=== PATIENT | male | born 2000 | race Caucasian/White ===

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

== ENCOUNTER 2019-01-31 11:02 | Emergency (ER) | payer OTHER ==
[~2019-01-31] VITALS: Ht 177.8 cm; Wt 98.3 kg
[2019-01-31] MEDS ORDERED: ABIL1INJ2 (11:07)
[2019-01-31] MEDS ORDERED: RABIES IMMUNE GLOBULIN 1500 INTERNATIONAL UNIT/5ML VIAL (90375) IM ONE ×2 (12:15)
[2019-01-31] MEDS ORDERED: RABIES IMMUNE GLOBULIN 300 INTERNATIONAL UNITS/1ML VIAL (90375) IM ONE (12:15)
[2019-01-31] MEDS ORDERED: RABIES VACCINE HUMAN 2.5 INTERNATIONAL UNITS/ML VIAL (90675) IM ONE (12:15)
[2019-01-31 13:27] VITALS: BP 116/69
== END 2019-01-31 13:34 | disposition home or self-care (01) ==
LOC: M ED 11:02
DX: Z20.3 Contact with and (suspected) exposure to rabies (principal); Z23 Encounter for immunization; Z88.0 Allergy status to penicillin; Z79.899 Other long term (current) drug therapy

== ENCOUNTER 2019-02-04 10:15 | Emergency (ER) | payer OTHER ==
[~2019-02-04] VITALS: Ht 185.4 cm; Wt 96.7 kg
[~2019-02-04 10:15] MED LIST changes: +ABIL1INJ2
[2019-02-04 10:16] VITALS: BP 132/68
[2019-02-04] MEDS ORDERED: VITA-112 (10:23)
[2019-02-04] MEDS ORDERED: VITA500045 (10:23)
[2019-02-04] MEDS ORDERED: RABIES VACCINE HUMAN 2.5 INTERNATIONAL UNITS/ML VIAL (90675) IM ONE (11:15)
== END 2019-02-04 11:45 | disposition home or self-care (01) ==
LOC: M ED 10:15
DX: Z20.3 Contact with and (suspected) exposure to rabies (principal); Z23 Encounter for immunization; Z79.899 Other long term (current) drug therapy; Z88.0 Allergy status to penicillin

== ENCOUNTER 2019-02-07 18:39 | Emergency (ER) | payer OTHER ==
[~2019-02-07] VITALS: Ht 182.9 cm; Wt 96.0 kg
[~2019-02-07 18:39] MED LIST changes: +VITA-112; +VITA500045
[2019-02-07] MEDS ORDERED: RABIES VACCINE HUMAN 2.5 INTERNATIONAL UNITS/ML VIAL (90675) IM ONE (20:15)
[2019-02-07 20:19] VITALS: BP 121/63
== END 2019-02-07 20:19 | disposition home or self-care (01) ==
LOC: M ED 18:39
DX: Z20.3 Contact with and (suspected) exposure to rabies (principal); Z23 Encounter for immunization; F84.0 Autistic disorder; Z79.899 Other long term (current) drug therapy; Z88.0 Allergy status to penicillin

== ENCOUNTER 2019-10-16 23:09 | Inpatient (IN) | payer MEDICAID, OTHER, SELFPAY ==
[~2019-10-16] VITALS: Ht 180.3 cm; Wt 109.2 kg
[2019-10-16 23:38] LABS: HEMATOCRIT 45.6 % (42.0-52.0); HEMOGLOBIN 15.4 g/dl (13.5-17.5); MEAN CORPUSCULAR HEMOGLOBIN 30.7 pg (27.0-33.0); MEAN CORPUSCULAR HGB CONC 33.8 g/dl (32.0-36.5); MEAN CORPUSCULAR VOLUME 90.8 fl (80.0-96.0); PLATELET COUNT, AUTOMATED 255 10^3/uL (150-450); RED BLOOD COUNT 5.02 10^6/uL (4.30-6.10); WHITE BLOOD COUNT 12.4 10^3/uL (4.0-10.0)
[2019-10-17] LABS: AMPHETAMINES LEVEL URINE NEGATIVE (NEGATIVE); BARBITURATES URINE NEGATIVE (NEGATIVE); BENZODIAZEPINES URINE NEGATIVE (NEGATIVE); CANNABINOIDS URINE NEGATIVE (NEGATIVE); COCAINE METABOLITE URINE NEGATIVE (NEGATIVE); METHADONE URINE NEGATIVE (NEGATIVE); OPIATES URINE NEGATIVE (NEGATIVE); PHENCYCLIDINE URINE NEGATIVE (NEGATIVE)
[2019-10-17 00:09] LABS: ACETAMINOPHEN LEVEL < 2.0 UG/ML (10.0-30.0); ALBUMIN 3.9 GM/DL (3.2-5.2); ALT/SGPT 90 U/L (12-78); BILIRUBIN,DIRECT < 0.1 MG/DL (0.0-0.2); BILIRUBIN,TOTAL 0.3 MG/DL (0.2-1.0); BLOOD UREA NITROGEN 12 MG/DL (7-18); CALCIUM LEVEL 9.5 MG/DL (8.5-10.1); CARBON DIOXIDE LEVEL 26 MEQ/L (21-32); CHLORIDE LEVEL 105 MEQ/L (98-107); CREATININE FOR GFR 1.06 MG/DL (0.70-1.30); ETHYL ALCOHOL (ETHANOL) 0.003 % (0.000-0.010); GLUCOSE, FASTING 115 MG/DL (70-100); POTASSIUM SERUM 3.9 MEQ/L (3.5-5.1); SALICYLATE LEVEL < 1.7 MG/DL (5.0-30.0); SODIUM LEVEL 139 MEQ/L (136-145); TOTAL PROTEIN 7.9 GM/DL (6.4-8.2)
[2019-10-17] MEDS ORDERED: MOM 30ML SUSPENSION UDC PO PRN (00:45)
[2019-10-17] MEDS ORDERED: MAALOX 30 ML SUSP *UDC PO PRN (00:45)
[2019-10-17] MEDS ORDERED: ACETAMINOPHEN TAB 650MG DOSE (2X325MG) PO PRN (00:45)
[2019-10-17] MEDS ORDERED: OLANZapine ORAL DISINTEGRATING TAB 5MG PO PRN (00:45)
[2019-10-17] MEDS ORDERED: ZOLO100T PO (01:16)
[2019-10-17] MEDS ORDERED: ABIL1INJ IM (01:16)
[2019-10-17] MEDS ORDERED: VITAD1000T PO (01:16)
[2019-10-17 01:52] VITALS: BP 138/74
[2019-10-17] MEDS: traZODone 50 MG TAB PO PRN (02:41)
[2019-10-17 06:25] VITALS: BP 121/59
[2019-10-17] MEDS: SERTRALINE 100 MG TAB PO SCH (08:36)
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
[2019-10-17 16:00] VITALS: BP 129/65
[2019-10-17 17:50] VITALS: BP 129/65
[2019-10-17] MEDS ORDERED: OXcarbazepine 150 MG TAB PO SCH ×2 (21:00)
[2019-10-18 06:34] VITALS: BP 113/57
[2019-10-18] MEDS: SERTRALINE 100 MG TAB PO SCH (08:55)
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
[2019-10-18 16:00] VITALS: BP 125/78
[2019-10-18] MEDS: OXcarbazepine 150 MG TAB PO SCH (20:12)
[2019-10-19 07:02] VITALS: BP 126/80
[2019-10-19] MEDS: SERTRALINE 100 MG TAB PO SCH (08:41)
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
[2019-10-19 16:03] VITALS: BP 144/86
[2019-10-19] MEDS: OXcarbazepine 150 MG TAB PO SCH (20:14)
[2019-10-20 06:06] VITALS: BP 110/64
[2019-10-20] MEDS: SERTRALINE 100 MG TAB PO SCH (08:18)
[2019-10-20 10:16] LABS: HEMOGLOBIN A1c 5.8 %
[2019-10-20 10:29] LABS: ALBUMIN 3.7 GM/DL (3.2-5.2); ALT/SGPT 68 U/L (12-78); BILIRUBIN,TOTAL 0.4 MG/DL (0.2-1.0); BLOOD UREA NITROGEN 17 MG/DL (7-18); CARBON DIOXIDE LEVEL 31 MEQ/L (21-32); CHLORIDE LEVEL 104 MEQ/L (98-107); CHOLESTEROL LEVEL 266 MG/DL (<200); CHOLESTEROL RISK RATIO 6.186 (<5); CREATININE FOR GFR 0.87 MG/DL (0.70-1.30); GLUCOSE, FASTING 87 MG/DL (70-100); HDL CHOLESTEROL 43 MG/DL (>40); LDL CHOLESTEROL 173 MG/DL (<100); NON-HDL-C 223 MG/DL; POTASSIUM SERUM 4.5 MEQ/L (3.5-5.1); SODIUM LEVEL 141 MEQ/L (136-145); TOTAL PROTEIN 7.4 GM/DL (6.4-8.2); TRIGLYCERIDES LEVEL 251 MG/DL (<150)
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
[2019-10-20 14:36] VITALS: BP 125/73
[2019-10-20] MEDS: traZODone 50 MG TAB PO PRN (20:21)
[2019-10-20] MEDS: OXcarbazepine 150 MG TAB PO SCH (20:21)
[2019-10-21 06:26] VITALS: BP 117/67
[2019-10-21] MEDS: SERTRALINE 100 MG TAB PO SCH (08:28)
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
[2019-10-21] MEDS ORDERED: OXCA150T21 PO (09:13)
== END 2019-10-21 11:40 | disposition home or self-care (01) | DRG 758 ==
LOC: M ED 23:09 → M ED INP 10-17 00:37 → M PSY 10-17 01:20
PROVIDERS: ADMIT Psychiatry & Neurology Psychiatry; ATTEND Psychiatry & Neurology Addiction Medicine
DX: F63.81 Intermittent explosive disorder (principal); F43.9 Reaction to severe stress, unspecified; Z88.0 Allergy status to penicillin; Z79.899 Other long term (current) drug therapy; Z63.5 Disruption of family by separation and divorce

== ENCOUNTER 2020-04-22 23:04 | Emergency (ER) | payer MEDICAID, OTHER ==
[~2020-04-22] VITALS: Ht 182.9 cm; Wt 109.1 kg
[~2020-04-22 23:04] MED LIST changes: +ABIL1INJ IM; +BUPR-69 OR; -BUPR50TA OR; +D31000TA2 PO; +OXCA150T21 PO; +ZOLO100T PO
[2020-04-22] MEDS ORDERED: PANT40TA29 PO (23:54)
[2020-04-22] MEDS ORDERED: OXCA300T14 PO (23:54)
[2020-04-22] MEDS ORDERED: ABIL300I IM (23:54)
[2020-04-22 23:55] LABS: HEMATOCRIT 42.5 % (42.0-52.0); MEAN CORPUSCULAR HEMOGLOBIN 30.4 pg (27.0-33.0); MEAN CORPUSCULAR HGB CONC 32.9 g/dl (32.0-36.5); MEAN CORPUSCULAR VOLUME 92.2 fl (80.0-96.0); PLATELET COUNT, AUTOMATED 223 10^3/uL (150-450); RED BLOOD COUNT 4.61 10^6/uL (4.30-6.10); WHITE BLOOD COUNT 5.9 10^3/uL (4.0-10.0)
[2020-04-23 00:27] LABS: AMPHETAMINES LEVEL URINE NEGATIVE (NEGATIVE); BARBITURATES URINE NEGATIVE (NEGATIVE); BENZODIAZEPINES URINE NEGATIVE (NEGATIVE); CANNABINOIDS URINE NEGATIVE (NEGATIVE); COCAINE METABOLITE URINE NEGATIVE (NEGATIVE); METHADONE URINE NEGATIVE (NEGATIVE); OPIATES URINE NEGATIVE (NEGATIVE); PHENCYCLIDINE URINE NEGATIVE (NEGATIVE)
[2020-04-23 00:40] LABS: ACETAMINOPHEN LEVEL < 2.0 UG/ML (10.0-30.0); ALT/SGPT 45 U/L (12-78); BILIRUBIN,DIRECT < 0.1 MG/DL (0.0-0.2); BILIRUBIN,TOTAL 0.2 MG/DL (0.2-1.0); BLOOD UREA NITROGEN 11 MG/DL (7-18); CALCIUM LEVEL 9.3 MG/DL (8.5-10.1); CARBON DIOXIDE LEVEL 28 MEQ/L (21-32); CHLORIDE LEVEL 106 MEQ/L (98-107); CREATININE FOR GFR 0.92 MG/DL (0.70-1.30); ETHYL ALCOHOL (ETHANOL) < 0.003 % (0.000-0.010); GLUCOSE, FASTING 92 MG/DL (70-100); SALICYLATE LEVEL < 1.7 MG/DL (5.0-30.0); SODIUM LEVEL 140 MEQ/L (136-145); TOTAL PROTEIN 7.7 GM/DL (6.4-8.2)
[2020-04-23 03:09] VITALS: BP 134/79
== END 2020-04-23 03:11 | disposition home or self-care (01) ==
LOC: M ED 23:04
DX: Z04.6 Encounter for general psychiatric examination, requested by authority (principal); F43.0 Acute stress reaction; Z88.0 Allergy status to penicillin
CPT/HCPCS: 36415; 80048; 80076; 80307; 84443; 85027; 99284; G0480

== ENCOUNTER → 2020-06-12 | Outpatient (REF) | payer OTHER, MEDICAID ==
[~2020-06-12] MED LIST changes: +ABIL300I IM; +OXCA300T14 PO; +PANT40TA29 PO
[2020-06-12 04:29] LABS: INFLUENZA A AMPLIFICATION NEGATIVE (NEGATIVE); INFLUENZA B AMPLIFICATION NEGATIVE (NEGATIVE)
== END ==
LOC: M LAB REF 06-11 09:17
PROVIDERS: ATTEND Physician Assistant
DX: R52 Pain, unspecified (principal)